=== PATIENT | male | born 1995 | race Caucasian/White ===

== ENCOUNTER 2017-09-11 22:16 | Emergency (ER) | payer BC, SELFPAY ==
[2017-09-11 22:19] VITALS: BP 159/80; PULSE 58; RESP 18; TEMP 37.1; O2SAT 97; BMI 26.9
[2017-09-11 22:46] LABS: Absolute Lymphocyte Count 0.89 X10^3/ul (0.83-4.51); Absolute Neutrophil Count 4.4 X10^3/uL (2.0-7.7); Basophil# 0.02 X10^3/uL; Basophil% 0.3 % (0-1); Eosinophil# 0.11 X10^3/uL; Eosinophils% 1.8 % (0-5); Hematocrit 40.7 % (40-54); Hemoglobin 13.9 g/dl (13.0-16.5); Lymphocyte # 0.89 X10^3/ul (4.0); Lymphocyte % 14.3 % (19-41); Mean Corp Hgb Conc 34.2 g/gl (32-36); Mean Corpuscular Hgb 30.3 pg (27.0-32.0); Mean Corpuscular Volume 88.9 fL (80-94); Mean Platelet Vol. 9.4 fl (6.2-12.0); Monocyte# 0.83 X10^3/uL; Monocyte% 13.3 % (0-10); Neutrophil # 4.36 X10^3/uL (2.7-7.7); Neutrophil % 70.1 % (47-70); POSITIVE COUNT NO; POSITIVE DIFFERENTIAL NO; POSITIVE MORPHOLOGY NO; Platelet Count 192 K/mm3 (150-450); RBC Distribution Width CV 11.8 % (11.6-14.6); RBC Distribution Width SD 38.1 fl (35.1-43.9); Red Blood Count 4.58 M/mm3 (4.6-6.2); White Blood Count 6.2 K/mm3 (4.4-11.0)
[2017-09-11] MEDS: 0.9% Normal Saline 1,000 ML 1000 ML IV (22:50)
[2017-09-11] MEDS: Ondansetron 4 MG/2 ML Vial IV (22:51)
[2017-09-11 23:00] LABS: Bacteria 0 SEEN /hpf (None Seen); Mucous, Urine 0 SEEN /hpf (<or=2+); Red Blood Cells-Urine 0 SEEN /hpf (0-5); Squamous Epithelial Cells - UA 0 SEEN /hpf (0-5); White Blood Cells 0 SEEN /hpf (0-5)
[2017-09-11 23:03] LABS: Color, Urine Yellow (Yellow); Glucose, Dipstick Normal (Normal); Ketone-Dipstick Negative (Negative); Leukocyte Esterase-Dipstick Negative /ul (Negative); Nitrite-Dipstick Negative (Negative); Occult Blood-Urine Negative /ul (Negative); Protein-Dipstick Negative (Negative); Urine Bilirubin Dipstick Negative (Negative); Urine Clarity Sl. Cloudy (Clear); Urine Urobilinogen Normal (Normal)
[2017-09-11 23:10] LABS: Amorphous Sediment 2+
[2017-09-11 23:10] LABS: AST(SGOT) 424 U/L (15-37); Alanine Aminotransfer ALT/SGPT 335 U/L (16-61); Albumin, Serum 3.5 g/dL (3.2-5.0); Alkaline Phosphatase 192 U/L (45-117); Anion Gap 7 (5-15); BUN 16 mg/dL (7-18); BUN/Creat Ratio 15.7 RATIO (10-20); Calcium,Total 8.5 mg/dL (8.5-10.1); Chloride 101 mmol/L (98-107); Creatinine, Serum 1.02 mg/dL (0.70-1.30); EST Glomerular Filtration Rate 97 mL/min (>60); Est Glom Filt Rate - Afr Amer 117 mL/min (>60); Estimated Creatinine Clearance 124.68 ml/min; Globulin 3.5 g/dL (2.2-4.2); Glucose 93 mg/dL (74-106); Lipase 162 U/L (73-393); Potassium 4.2 mmol/L (3.5-5.1); Sodium Level 139 mmol/L (136-145)
--- NOTE | 2017-09-11 23:27 | CT_ITS ---
STUDY: CT ABDOMEN AND PELVIS WITHOUT CONTRAST REASON FOR EXAM: Male, 22 years old. Upper abdominal pain and diarrhea for 5 days RADIATION DOSAGE (If Supplied By Facility): CTDIvol = ( 12.35 ) mGy, DLP = ( 764.84 ) mGycm TECHNIQUE: Transaxial images were obtained from the dome of the diaphragm to the symphysis pubis without oral contrast, and without intravenous contrast. Sagittal and coronal images were reconstructed. Individualized dose optimization techniques were used for this CT. COMPARISON: None. FINDINGS: The visualized lung bases are unremarkable. The visualized portions of the heart are within normal limits. Normal liver. Normal gallbladder and extrahepatic biliary system. Normal spleen. Normal pancreas. Normal bilateral adrenal glands. Normal right kidney. Normal left kidney. The stomach is decompressed. There mildly distended loops of small bowel with mild mucosal thickening. There is mild mucosal thickening of the ascending colon image #54 coronal views. There is mildly thick-walled appearance of the transverse colon and to a greater degree the splenic flexure. There is a mildly thick-walled appearance of the rectum. There is moderate stool within the colon. The appendix is visualized and appears normal. Normal abdominal aorta. Normal inferior vena cava. There are small right lower quadrant lymph nodes measuring up to 1.0 cm. Bladder is distended. Normal visualized prostate gland. There are nonspecific subcentimeter groin lymph nodes. There is a disc protrusion at L4-L5 image #68 axial views. There is a minimal broad disc bulge at L5-S1. CT/Abdomen/Pelvis W IV Cont ONLY IMPRESSION: There is a mildly distended mildly thick-walled appearance of the mucosa of the small bowel. There is a thick-walled appearance of the colon suspicious for colitis. Consider pattern of gastroenteritis. Reactive right lower quadrant mesenteric lymph node nodes. No evidence of appendicitis. Electronically Signed: Lilly Spencer MD at 0:45 EDT Tel , Service support ,
[2017-09-12 00:49] VITALS: BP 147/62; PULSE 58; RESP 16; O2SAT 97
[2017-09-12 01:23] VITALS: RESP 18
--- NOTE | 2017-09-12 01:26 | ED.DCSUM_ITS ---
- ER Visit Summary Date of Service: 09/12/17 Chief Complaint: Abdominal pain and diarrhea History of Present Illness: The patient is a 22 M who presents with abdominal pain and diarrhea. His diarrhea initially began about 5 days ago. He was initially having copious diarrhea although this is improved but he is continued to have up to 6 episodes a day. He has not had any diarrhea in the last several hours however. He has had some intermittent epigastric abdominal pain. He describes this as sharp. However it became acutely worse tonight over the last couple of hours. His pain was 8 out of 10 at its worst and is 5 out of 10 currently. He has noticed some relief of symptoms after bowel movement. He denies any nausea or vomiting. No fevers. However he does report some chills. Physical Examination: Afebrile vitals are unremarkable Heart regular rate and rhythm Lungs are clear Abdomen soft nondistended he does have some epigastric tenderness without guarding without rebound Alert Test Results: Labs are notable for alkaline phosphatase of 192, ALT 335, AST 424. Lipase is normal. Bilirubin is normal. Urinalysis is. CT of the abdomen and pelvis shows no evidence of appendicitis there is some reactive right lower quadrant lymphadenopathy. He has mildly distended thick-walled small bowel and thick-walled colon. Emergency Department Course and Treatment: Patient does have mild elevation of his transaminases Ranjit and lipase are normal. He does not have leukocytosis. He was given IV fluids Zofran and GI cocktail here with significant improvement of symptoms. CT of the abdomen was obtained to further evaluate abnormal LFTs. This shows evidence of enteritis and colitis otherwise unremarkable. Patient will be treated for infectious colitis. I also sent off and acute hepatitis panel in regards to his transaminases. However he does report that he was binge drinking last weekend and this is likely related to recent alcohol use. He was advised on avoiding alcohol and Tylenol until his liver tests are rechecked. He understands return for new or worsening symptoms and was instructed on specific signs and symptoms to monitor for. Treatment Plan: [] Disposition: Discharge Impression: Enteritis Colitis Transaminitis This note was generated with [employer] dictation software. It may contain incorrect words, spelling, and punctuation that were not noted in review of the chart prior to signing ED Disposition - Plan for ED Patient: Chief Complaint: Diarrhea Referrals: [facility] Doctor,Out of [Primary Care Provider] -
--- NOTE | 2017-09-12 01:26 | ED.DEP ---
ED Disposition - Plan for ED Patient: Chief Complaint: Diarrhea Instructions: ED Gastroenteritis Bacterial Prescriptions: Metronidazole [Flagyl] 500 mg PO Q8H #21 tab Ciprofloxacin [Cipro] 500 mg PO BID #14 tab Referrals: [facility],Out of [Primary Care Provider] -
[2017-09-15 03:21] LABS: HEPATITIS B SURFACE AG Negative (Negative); Hepatitis A IgM Antibody Negative (Negative); Hepatitis B Core AB IgM Negative (Negative)
[2017-09-15 07:52] LABS: Hep C Antibodies <0.1 s/co ratio (0.0-0.9)
== END 2017-09-12 01:37 | disposition home or self-care (01) ==
PROVIDERS: Emergency Provider Emergency Medicine
DX: A09 Infectious gastroenteritis and colitis, unspecified (principal)
CPT/HCPCS: 74177; 80053; 80074; 81001; 83690; 85025; 96361; 96374; 99283; J7030; J2405